=== PATIENT | female | born 2000 | race Hispanic/Latino ===

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

== ENCOUNTER 2020-06-10 03:48 | Emergency (ER) | payer SELFPAY ==
[~2020-06-10] VITALS: Ht 149.9 cm; Wt 68.0 kg
[2020-06-10 04:55] LABS: HEMATOCRIT 43.8 % (37.0-47.0); HEMOGLOBIN 14.1 g/dl (12.0-16.0); IMMATURE GRANULOCYTES 0.2 % (0.0-5.0); MEAN CORPUSCULAR HGB 29.9 pG CALC (26.0-32.0); MEAN CORPUSCULAR HGB CONC 32.2 g/dL CAL (32.0-36.0); NEUT# 5.93 thou/uL (2.00-7.15); RED BLOOD COUNT 4.71 mill/uL (4.20-5.60); RED CELL DISTRI WIDTH 12.1 % (11.5-15.5)
[2020-06-10 05:14] LABS: ALBUMIN 4.8 g/dL (3.2-5.0); ALKALINE PHOSPHATASE 112 u/l (38-126); ANION GAP 12 (6-22 (CALC)); BUN 13 mg/dL (8-21); BUN/CREATININE RATIO 20 (12-20 (CALC)); CARBON DIOXIDE 29 mmol/l (22-30); CHLORIDE 105 mmol/l (95-108); CREATININE 0.7 mg/dL (0.5-1.0); ETHYL ALCOHOL 239 mg/dl (0-30); GFR > 60 ML/MIN (>=60 (CALC)); GFR FOR AFR.AMER. > 60 ML/MIN (>=60 (CALC)); POTASSIUM 4.3 mmol/l (3.5-5.1); SODIUM 141 mmol/l (137-146); TOTAL PROTEIN 7.6 g/dL (6.3-8.2)
[2020-06-10 05:17] LABS: BILIRUBIN, TOTAL 0.3 mg/dL (0.0-1.4); SGOT/AST 45 u/l (14-36)
[2020-06-10 05:25] VITALS: BP 133/88
== END 2020-06-10 05:35 | disposition home or self-care (01) | DRG 897 ==
LOC: ED 03:48
PROVIDERS: Emergency Medicine
DX: F10.129 Alcohol abuse with intoxication, unspecified (principal)

== ENCOUNTER 2021-06-27 10:37 | Emergency (ER) | payer MEDICAID ==
[~2021-06-27] VITALS: Ht 149.9 cm; Wt 89.0 kg
[2021-06-27] MEDS ORDERED: PRE-NATAL PO (12:37)
[2021-06-27] MEDS ORDERED: ZOFRAN4 MG/TAB PO (12:51)
[2021-06-27 13:05] VITALS: BP 134/60
== END 2021-06-27 13:05 | disposition home or self-care (01) ==
LOC: ED 10:37
DX: O21.9 Vomiting of pregnancy, unspecified (principal); Z3A.20 20 weeks gestation of pregnancy

== ENCOUNTER 2021-08-17 18:39 | Emergency (ER) | payer MEDICAID ==
[~2021-08-17] VITALS: Ht 149.9 cm; Wt 95.0 kg
[~2021-08-17 18:39] MED LIST: PRE-NATAL PO; ZOFRAN4 MG/TAB PO
[2021-08-17 19:38] LABS: HEMATOCRIT 40.2 % (37.0-47.0); HEMOGLOBIN 13.5 g/dl (12.0-16.0); IMMATURE GRANULOCYTES 0.5 % (0.0-5.0); MEAN CELL VOLUME 93.1 fL CALC (80.0-100.0); MEAN CORPUSCULAR HGB 31.3 pG CALC (26.0-32.0); MEAN CORPUSCULAR HGB CONC 33.6 g/dL CAL (32.0-36.0); NEUT# 8.94 thou/uL (2.00-7.15); RED BLOOD COUNT 4.32 mill/uL (4.20-5.60); RED CELL DISTRI WIDTH 12.8 % (11.5-15.5)
[2021-08-17 19:39] LABS: URINE BILIRUBIN - DIPSTICK NEGATIVE (NEGATIVE); URINE BLOOD DIPSTICK NEGATIVE (NEGATIVE); URINE COLOR YELLOW; URINE GLUCOSE - DIPSTICK NEGATIVE (NEGATIVE); URINE KETONE TRACE mg/dL (NEGATIVE); URINE LEUK ESTERASE NEGATIVE (NEGATIVE); URINE NITRITE - DIPSTICK NEGATIVE (Negative); URINE PROTEIN - DIPSTICK NEGATIVE (NEG-TRACE); URINE SPECIFIC GRAVITY >=1.030; URINE UROBILINOGEN - DIPSTICK 0.2 E.U./dL (0.2)
[2021-08-17 19:45] LABS: ALKALINE PHOSPHATASE 142 u/l (38-126); BILIRUBIN, TOTAL 0.3 mg/dL (0.0-1.4); BUN 14 mg/dL (7-17); BUN/CREATININE RATIO 25 (12-20 (CALC)); CHLORIDE 104 mmol/l (95-108); CREATININE 0.6 mg/dL (0.5-1.0); GFR > 60 ML/MIN (>=60 (CALC)); GFR FOR AFR.AMER. > 60 ML/MIN (>=60 (CALC)); POTASSIUM 3.7 mmol/l (3.5-5.1); SGOT/AST 42 u/l (14-36); SODIUM 135 mmol/l (137-146); TOTAL PROTEIN 6.5 g/dL (6.3-8.2)
[2021-08-17 19:57] LABS: ALBUMIN 3.6 g/dL (3.2-5.0); ANION GAP 13 (6-22 (CALC)); CARBON DIOXIDE 22 mmol/l (22-30)
[2021-08-17 20:02] LABS: BETA-HCG, QUANT(RESULT NUMBER) > 15000 mIU/mL
[2021-08-17] MEDS ORDERED: PREVACID30 M3 PO (21:10)
[2021-08-17 21:30] VITALS: BP 132/78
== END 2021-08-17 21:30 | disposition home or self-care (01) ==
LOC: ED 18:39
PROVIDERS: Family Medicine
DX: O99.612 Diseases of the digestive system complicating pregnancy, second trimester (principal); K29.70 Gastritis, unspecified, without bleeding; Z3A.27 27 weeks gestation of pregnancy